=== PATIENT | female | born 1975 | race Caucasian/White ===

== ENCOUNTER 2016-06-14 22:16 | Emergency (ER) | payer MEDICAID, OTHER ==
[~2016-06-14] VITALS: Ht 170.2 cm; Wt 75.0 kg
[~2016-06-14 22:16] MED LIST: ONDA1TAB16 PO; TYLE3 PO
[2016-06-14 22:18] VITALS: BP 146/96; PULSE 98; RESP 26; TEMP 98; O2SAT 98
== END 2016-06-15 01:22 | disposition left against medical advice (07) ==
LOC: NEPE 22:16 → NETRI 06-15 01:22
DX: Z53.21 Procedure and treatment not carried out due to patient leaving prior to being seen by health care provider (principal)
CPT/HCPCS: 99281